=== PATIENT | male | born 1965 | race Caucasian/White ===

== ENCOUNTER → 2016-09-16 | Outpatient (CLI) | payer MEDICARE, MEDICAID ==
[~2016-09-16] MED LIST: ALDACTONE50 MG PO; BACTRIM DS DPS1 TAB PO; DEMADEX DPS100 MG PO; GAS RELIEF80 MG PO; INDERAL-DPS20 MG PO; KLOR-CON M2020 ME1 PO; LEVEMIR100 UNIT/1 SQ; MAG-OX400 MG PO; NEURONTIN DPS300 MG PO; NOVOLOG100 UNIT/2 SQ; PRILOSEC DPS20 MG PO; SURFAK DPS240 MG PO; VITAMIN D50000 UNIT PO
== END | disposition home or self-care (01) ==
LOC: RAD.S 07:41
DX: K70.31 Alcoholic cirrhosis of liver with ascites (principal); R16.2 Hepatomegaly with splenomegaly, not elsewhere classified

== ENCOUNTER 2016-10-02 15:28 | Emergency (ER) | payer MEDICARE, MEDICAID ==
--- NOTE | 2016-10-13 14:37 | ER ---
ADMIT: 10/02/2016 RM/LOC: ER [facility] MR#: [id number] [place], [place] [id number] FABIENNE TROTTER [address] [id number] Emergency Room Report SEX: M AGE: 51 : 1965 DATE: 10/02/2016 ADDENDUM: CHIEF COMPLAINT: Right leg pain. HISTORY OF PRESENT ILLNESS: This is a 51-year-old male who stepped off a curb. He felt pain in his right leg. An x-ray was done of his tib-fib, it is negative for any fractures as read by Dr. Gilmore. CLINICAL IMPRESSION: Right lower leg muscle strain to the anterior portion. DISPOSITION: I told him to ice, use Motrin, Tylenol for pain. Activity as tolerated. Stretch and follow up with the primary care physician if worsens. DEVON Rojas / Narayan Gilmore MD / modl JOB #: [id number] CC: Narayan Gilmore MD, Attending Physician
== END 2016-10-02 17:00 | disposition home or self-care (01) ==
LOC: ER 15:28
DX: S86.211A Strain of muscle(s) and tendon(s) of anterior muscle group at lower leg level, right leg, initial encounter (principal); E11.9 Type 2 diabetes mellitus without complications; I12.9 Hypertensive chronic kidney disease with stage 1 through stage 4 chronic kidney disease, or unspecified chronic kidney disease; N18.9 Chronic kidney disease, unspecified; Z79.4 Long term (current) use of insulin; Z79.84 Long term (current) use of oral hypoglycemic drugs; Z79.899 Other long term (current) drug therapy; W10.1XXA Fall (on)(from) sidewalk curb, initial encounter